=== PATIENT | female | born 1940 | race Caucasian/White ===

== ENCOUNTER 2024-05-20 09:12 | Outpatient (CLI) | payer MEDICARE | END 2024-05-20 09:13 | disposition home or self-care (01) | LOC: CSHRAD 09:12 | PROVIDERS: ATTEND Internal Medicine Gastroenterology | DX: R10.12 Left upper quadrant pain (principal); K59.01 Slow transit constipation; R63.4 Abnormal weight loss; K31.89 Other diseases of stomach and duodenum; K57.10 Diverticulosis of small intestine without perforation or abscess without bleeding; K22.4 Dyskinesia of esophagus; K44.9 Diaphragmatic hernia without obstruction or gangrene | CPT/HCPCS: 74246 ==